=== PATIENT | female | born 1990 | race Caucasian/White ===

== ENCOUNTER 2020-10-31 10:37 | Emergency (ER) | payer MEDICAID ==
[~2020-10-31] VITALS: Ht 160 cm; Wt 54.4 kg
[2020-10-31 10:47] VITALS: BP 105/69
--- NOTE | 2020-10-31 10:53 | NUR ---
PATIENT AMBULATED TO BED 4.
--- NOTE | 2020-10-31 10:55 | NUR ---
30/F BIB SELF C/O N/V/D, ABDOMINAL PAIN X LAST NIGHT. PT STATED SHE HAD DIARRHEA 20 TIMES, VOMITING X 8 TIMES TODAY. PMH: APPENDECTOMY. LUNGS CLEAR BL, BREATHING UNLABORED; HR EVEN AND REGULAR, BL PERIPHERAL PULSES PRESENT; BS ACTIVE X4, NO TENDERNESS TO PALPATION, PARENT DENIES ANY FEVER, CP, SOB, OR COUGH AT THIS TIME; 10/10 PAIN AT THIS TIME; VSS; PATIENT POSITIONED FOR COMFORT; HOB ELEVATED; BEDRAILS UP X1; BED DOWN.
[2020-10-31] MEDS ORDERED: ONDANSETRON 4 MG/2 ML VIAL IVP ONE (11:15)
[2020-10-31] MEDS ORDERED: FAMOTIDINE 20 MG/2 ML VIAL IVP ONE (11:15)
[2020-10-31] MEDS ORDERED: KETOROLAC 30 MG/ML VIAL IVP ONE (11:15)
--- NOTE | 2020-10-31 11:30 | NUR ---
lab at bedside
[2020-10-31 11:35] LABS: BASOPHILS % (AUTO) 0.2 % (0.0-2.0); EOSINOPHILS # (AUTO) 0.1 K/uL (0-0.4); EOSINOPHILS % (AUTO) 0.4 % (0.0-4.0); HEMOGLOBIN 15.9 g/dL (12.0-16.0); LYMPHOCYTES # (AUTO) 1.9 K/uL (2.5-16.5); LYMPHOCYTES % (AUTO) 9.1 % (20.5-51.1); MEAN CORPUSCULAR HEMOGLOBIN 30 pg (27-31); MEAN CORPUSCULAR HGB CONC 34 g/dL (33-37); MONOCYTES # (AUTO) 1.4 K/uL (0.8-1.0); MONOCYTES % (AUTO) 6.8 % (1.7-9.3); NEUTROPHILS # (AUTO) 17.3 K/uL (1.8-7.7); NEUTROPHILS % (AUTO) 83.5 % (42.2-75.2); PLATELET COUNT (AUTO) 293 K/uL (140-450); RED BLOOD CELL COUNT(AUTO) 5.22 MIL/uL (4.20-5.40); RED CELL DISTRIBUTION WIDTH 13.3 % (11.6-13.7); WHITE BLOOD COUNT (AUTO) 20.7 K/uL (4.8-10.8)
[2020-10-31] MEDS: NACL 0.9% 1,000 ML IV SCH ×2 (11:39→13:45)
[2020-10-31 11:48] LABS: ALBUMIN 4.9 g/dL (3.4-5.0); ANION GAP 18.4 (8-16); CARBON DIOXIDE 22.2 mmol/L (21-32); CREATININE 0.8 mg/dL (0.6-1.3); POTASSIUM 3.6 mmol/L (3.5-5.1); TOTAL BILIRUBIN 1.3 mg/dL (0.0-1.0)
--- NOTE | 2020-10-31 12:20 | NUR ---
PT C/C 12/28 lower abd pain. Requesting further pain management. ERMD made aware. No new orders at this time.
[2020-10-31] MEDS ORDERED: ATRO1TAB PO ×2 (13:04→13:09)
[2020-10-31] MEDS ORDERED: ONDA4TAB PO (13:04)
[2020-10-31 13:30] VITALS: BP 110/62
--- NOTE | 2020-10-31 13:30 | NUR ---
Patient discharged with v/s stable. Written and verbal after care instructions given and explained. Patient alert, oriented and verbalized understanding of instructions. Ambulatory with steady gait. All questions addressed prior to discharge. ID band removed. Patient advised to follow up with PMD. Rx of Lomotil and Zofran given. Patient educated on indication of medication including possible reaction and side effects. Opportunity to ask questions provided and answered.
[2020-10-31] MEDS ORDERED: ACETAMINOPHEN 325 MG TAB PO ONE (13:35)
== END 2020-10-31 13:30 | disposition home or self-care (01) ==
LOC: MED 10:37
DX: R10.30 Lower abdominal pain, unspecified (principal); R11.2 Nausea with vomiting, unspecified; R19.7 Diarrhea, unspecified; J45.909 Unspecified asthma, uncomplicated; Z90.49 Acquired absence of other specified parts of digestive tract; Z79.899 Other long term (current) drug therapy
CPT/HCPCS: 36415; 80053; 81002; 81025; 83690; 85025; 96361; 96374; 96375; 99284; J1885; J2405; J3490; J7030

== ENCOUNTER 2021-09-24 13:53 | Emergency (ER) | payer MEDICAID ==
[~2021-09-24] VITALS: Ht 160 cm; Wt 59.9 kg
[~2021-09-24 13:53] MED LIST: ATRO1TAB PO; ONDA4TAB PO
[2021-09-24 14:01] VITALS: BP 136/73
--- NOTE | 2021-09-24 14:15 | NUR ---
31 y/o female ambulated to bed 2, c/o abd pain, nausea, vaginal discharge for 4 days. denies spotting, bleeding, vomiting, diarrhea. pt states she was referred to come here for tx due to 8 weeks pmh: asthma ndka med: vitamin
--- NOTE | 2021-09-24 14:47 | NUR ---
us at bedside
--- NOTE | 2021-09-24 15:05 | NUR ---
WALKED URINE DOWN TO LAB
[2021-09-24 15:31] LABS: BASOPHILS # (AUTO) 0.1 K/uL (0.00-0.22); EOSINOPHILS # (AUTO) 2.8 K/uL (0-0.4); EOSINOPHILS % (AUTO) 18.7 % (0.0-4.0); HEMATOCRIT 38.4 % (36-48); HEMOGLOBIN 13.1 g/dL (12.0-16.0); LYMPHOCYTES # (AUTO) 0.8 K/uL (2.5-16.5); LYMPHOCYTES % (AUTO) 5.7 % (20.5-51.1); MEAN CORPUSCULAR HEMOGLOBIN 30 pg (27-31); MEAN CORPUSCULAR HGB CONC 34 g/dL (33-37); MEAN CORPUSCULAR VOLUME 87.9 fL (80-94); MONOCYTES # (AUTO) 0.2 K/uL (0.8-1.0); MONOCYTES % (AUTO) 1.3 % (1.7-9.3); NEUTROPHILS # (AUTO) 10.9 K/uL (1.8-7.7); NEUTROPHILS % (AUTO) 73.3 % (42.2-75.2); PLATELET COUNT (AUTO) 304 K/uL (140-450); RED BLOOD CELL COUNT(AUTO) 4.37 MIL/uL (4.20-5.40); WHITE BLOOD COUNT (AUTO) 14.8 K/uL (4.8-10.8)
[2021-09-24 15:57] LABS: APPEARANCE,URINE CLEAR (CLEAR); BILIRUBIN,URINE NEGATIVE (NEGATIVE); BLOOD, URINE NEGATIVE (NEGATIVE); COLOR,URINE YELLOW (YELLOW); LEUKOCYTE ESTERASE ,URINE NEGATIVE (NEGATIVE); NITRITE, URINE NEGATIVE (NEGATIVE); UGLUCOSE NEGATIVE (NEGATIVE)
[2021-09-24 16:15] VITALS: BP 100/64
--- NOTE | 2021-09-24 16:15 | NUR ---
Patient discharged with v/s stable. Written and verbal after care instructions given and explained. Patient verbalized understanding. Ambulatory with steady gait. All questions addressed prior to discharge. Advised to follow up with PMD.
== END 2021-09-24 16:15 | disposition home or self-care (01) ==
LOC: MED 13:53
DX: O26.891 Other specified pregnancy related conditions, first trimester (principal); R10.30 Lower abdominal pain, unspecified; Z3A.01 Less than 8 weeks gestation of pregnancy; J45.909 Unspecified asthma, uncomplicated; Z79.899 Other long term (current) drug therapy
CPT/HCPCS: 36415; 76801; 81003; 81025; 84702; 85025; 86900; 86901; 99284; Q0092

== ENCOUNTER 2021-10-16 06:53 | Emergency (ER) | payer MEDICAID ==
[~2021-10-16] VITALS: Ht 160 cm; Wt 61.2 kg
[2021-10-16 07:05] VITALS: BP 121/75
[2021-10-16] MEDS ORDERED: DOPPLER MC ONE (07:19)
[2021-10-16] MEDS ORDERED: ONDANSETRON 4 MG ODT PO ONE ×2 (07:25→09:40)
[2021-10-16] MEDS ORDERED: ACETAMINOPHEN EXTRA STRENGTH 500 MG TAB PO ONE (07:30)
[2021-10-16] MEDS ORDERED: ONDA8TAB87 PO (09:19)
[2021-10-16 09:53] VITALS: BP 102/63
== END 2021-10-16 09:53 | disposition home or self-care (01) ==
LOC: MED 06:53
DX: O21.8 Other vomiting complicating pregnancy (principal); O26.891 Other specified pregnancy related conditions, first trimester; R19.7 Diarrhea, unspecified; R10.30 Lower abdominal pain, unspecified; O99.53 Diseases of the respiratory system complicating the puerperium; J45.901 Unspecified asthma with (acute) exacerbation; Z3A.11 11 weeks gestation of pregnancy; Z90.49 Acquired absence of other specified parts of digestive tract; Z79.899 Other long term (current) drug therapy
CPT/HCPCS: 81002; 81025; 99284; Q0162